=== PATIENT | female | born 1995 | race African-American/Black ===

== ENCOUNTER 2020-10-26 08:18 | Emergency (ER) | payer OTHER ==
[~2020-10-26 08:18] MED LIST: IBUPROFEN400 MG PO; NAPROSYN500 MG PO; PENICILLIN V P500 MG PO; PRENAISSANCE 91 EACH PO
== END 2020-10-26 11:48 | disposition home or self-care (01) ==
LOC: ED 08:18
DX: O20.0 Threatened abortion (principal); Z3A.08 8 weeks gestation of pregnancy; O99.511 Diseases of the respiratory system complicating pregnancy, first trimester; F17.200 Nicotine dependence, unspecified, uncomplicated; Z88.2 Allergy status to sulfonamides; Z88.1 Allergy status to other antibiotic agents
CPT/HCPCS: 76801; 80048; 81001; 84702; 84703; 85025; 99284-25

== ENCOUNTER 2021-05-25 08:21 | Inpatient (IN) | payer OTHER ==
[~2021-05-25] VITALS: Ht 160 cm; Wt 89.8 kg
--- NOTE | 2021-05-25 09:55 | NUR ---
RAPID COVID TEST DONE PER DR ORDER. COVID TEST COLLECTED FROM BOTH NARES W/O ISSUE. PT TOLERATED WELL.
--- NOTE | 2021-05-25 11:22 | PR ---
[facility] [address] [facility] [place], [place] [address] Signed Progress Notes IP Datetime Report Generated by CPN: 05/25/2021 11:22 PROGRESS NOTES: [id number] Impression: Normal Progression of Labor Plan: Continue Present Management; Anticipate Vaginal Delivery VITAL SIGNS: [id number] Vital Signs: Reviewed EXAM: [id number] Dilatation: 9.0 Effacement: 95 Station: 0 Contractions: every 2 to 4 min MEMBRANES: [id number] Membranes Status: Ruptured Amniotic Fluid Color: Clear Comments: Just got Epidural, but still hurting, so Anesthesia will try Saddle Block. Received 1 dose antibiotics for GBS+ FETUS A: [id number] FHR Baseline: 130 Variability: Moderate 6-25bpm Accelerations: 10X10 Decelerations: None FHR Category: Category II Presentation: Vertex Comments on Fetus A: overall reassuring FETUS B: [id number] Signing Physician: Carroll Guillen MD Copies: ~ *Electronically Signed* 05/25/21 1122 CARROLL GUILLEN MD PATIENT NAME: CASS HAYES JAYME PROGRESS NOTE DATE OF : 95 PHYSICIAN: CARROLL GUILLEN MD [facility] #: [id number] REPORT IS CONFIDENTIAL AND NOT TO BE RELEASED WITHOUT AUTHORIZATION
--- NOTE | 2021-05-26 14:00 | PR ---
[facility] [address] [facility] [place] [address] Signed PP Progress Notes Datetime Report Generated by CPN: 05/26/2021 13:59 SUBJECTIVE: [id number] Pain: Within Normal Limits Nausea/Vomiting: Denies Vital Signs: [id number] Vital Signs: Reviewed; Within Normal Limits EXAM: Ongoing Lochia: Normal IMPRESSION/PLAN/PROCEDURES: [id number] Impression: Normal Progression Plan: Continue Present Management Procedures: None Progress Notes: Doing well, without complaint, tolerating food well, moving without difficulty. Signing Physician: Melony Guillen MD Copies: ~ *Electronically Signed* 05/26/21 1359 MELONY GUILLEN MD PATIENT NAME: CASS HAYES PROGRESS NOTE DATE OF : 95 PHYSICIAN: MELONY GUILLEN MD RPT #: [id number] REPORT IS CONFIDENTIAL AND NOT TO BE RELEASED WITHOUT AUTHORIZATION
--- NOTE | 2021-05-27 12:13 | PR ---
[facility] [address] [facility] [place] [address] Signed PP Progress Notes Datetime Report Generated by CPN: 05/27/2021 12:12 SUBJECTIVE: [id number] Pain: Within Normal Limits Nausea/Vomiting: Denies Vital Signs: [id number] Vital Signs: Reviewed; Within Normal Limits Notable Details: PP Hgb/Hct = 10.9/33.6 EXAM: Ongoing Abdomen/Uterus: Normal Lochia: Normal Extremities: Normal IMPRESSION/PLAN/PROCEDURES: [id number] Impression: Normal Progression Plan: Discharge Procedures: None Progress Notes: Doing well, without complaint; ready to go home. Signing Physician: Melony Guillen MD Copies: ~ *Electronically Signed* 05/27/21 1212 MELONY GUILLEN MD PATIENT NAME: CASS HAYES PROGRESS NOTE DATE OF : 95 PHYSICIAN: MELONY GUILLEN MD RPT #: [id number] REPORT IS CONFIDENTIAL AND NOT TO BE RELEASED WITHOUT AUTHORIZATION
== END 2021-05-27 12:55 | disposition home or self-care (01) | DRG 807 ==
LOC: FBCO 08:21 → FBC 08:45
PROVIDERS: ADMIT Obstetrics & Gynecology; ATTEND Obstetrics & Gynecology
PROC: 10E0XZZ Delivery of Products of Conception, External Approach (ICD-10-PCS; principal; 2021-05-25)
PROC: 3E0R3BZ Introduction of Anesthetic Agent into Spinal Canal, Percutaneous Approach (ICD-10-PCS; 2021-05-25)
PROC: 00HU33Z Insertion of Infusion Device into Spinal Canal, Percutaneous Approach (ICD-10-PCS; 2021-05-25)
PROC: 0HQ9XZZ Repair Perineum Skin, External Approach (ICD-10-PCS; 2021-05-25)
DX: O99.824 Streptococcus B carrier state complicating childbirth (principal); Z37.0 Single live birth; Z3A.39 39 weeks gestation of pregnancy; O69.81X0 Labor and delivery complicated by cord around neck, without compression, not applicable or unspecified; Z20.822 Contact with and (suspected) exposure to COVID-19; O70.0 First degree perineal laceration during delivery; O99.334 Smoking (tobacco) complicating childbirth; F17.210 Nicotine dependence, cigarettes, uncomplicated; O99.324 Drug use complicating childbirth; F12.90 Cannabis use, unspecified, uncomplicated; Z88.2 Allergy status to sulfonamides; Z91.040 Latex allergy status; Z91.048 Other nonmedicinal substance allergy status; Z91.09 Other allergy status, other than to drugs and biological substances
CPT/HCPCS: 85027; A9270; C9803; J2001; J2405; J2540; J2590; J2795; J3010; J7121; U0003